=== PATIENT | female | born 1990 | race Two or more races ===

== ENCOUNTER 2018-02-16 10:35 | Emergency (ER) | payer SELFPAY ==
[2018-02-16 10:42] VITALS: BP 111/57
--- NOTE | 2018-02-16 10:49 | ER Document Report ---
HPI - HPI Patient complains to provider of: Toothache Onset: Yesterday Onset/Duration: Gradual Pain Level: 5 Context: 27-year-old female who has a decayed top second molar that started to hurt yesterday. It cracked several months ago. No facial swelling or fever. Associated Symptoms: None Exacerbated by: Denies Relieved by: Denies Similar symptoms previously: No Recently seen / treated by doctor: No - ROS ROS below otherwise negative: Yes Systems Reviewed and Negative: Yes All other systems reviewed and negative Past Medical History - General Information source: Patient - Social History Smoking Status: Never Smoker Lives with: Spouse/Significant other Family History: Reviewed & Not Pertinent - Medical History Medical History: Negative Surgical Hx: Negative Vertical Provider Document - CONSTITUTIONAL Agree With Documented VS: Yes Exam Limitations: No Limitations General Appearance: No Apparent Distress - INFECTION CONTROL TRAVEL OUTSIDE OF THE [place] IN LAST 30 DAYS: No - HEENT Notes: Decayed second molar top right no gingival swelling or abscess - NECK Neck: Supple. negative: Lymphadenopathy-Left, Lymphadenopathy-Right - NEURO Level of Consciousness: Awake Course - Vital Signs Vital signs: Temp Pulse Resp BP Pulse Ox 97.6 F 50 L 16 111/57 L 98 02/16/18 10:40 02/16/18 10:40 02/16/18 10:40 02/16/18 10:40 02/16/18 10:40 Discharge - Discharge Clinical Impression: Top right dental pain and decay Condition: Good Disposition: HOME, SELF-CARE Instructions: [facility], Dentist, Penicillin V K ([facility]), Toothache ([facility]), Topical Lidocaine ([facility]) Additional Instructions: warm compress See the dentist Tylenol up to 4000 mg a day for pain Motrin 600 mg up to 4 times a day for pain Take the penicillin until is gone Return to the emergency room any worsening of the symptoms if he cannot get into a dentist Prescriptions: Ibuprofen [Motrin 600 mg Tablet] 600 mg PO Q8HP PRN #30 tablet PRN Reason: Penicillin V Potassium [Penicillin Vk 500 mg Tablet] 500 mg PO QID #40 tablet
[2018-02-16] MEDS ORDERED: IBUPROFEN 800 MG TABLET PO ONE (11:08)
[2018-02-16] MEDS ORDERED: LIDOCAINE 2% VISCOUS SOLN 20 ML UDCUP PO ONE (11:08)
== END 2018-02-16 11:35 | disposition home or self-care (01) ==
LOC: ER 10:35
DX: K02.9 Dental caries, unspecified (principal)
CPT/HCPCS: 99282; J3490